=== PATIENT | female | born 1980 | race Hispanic/Latino ===

== ENCOUNTER 2018-01-29 01:31 | Emergency (ER) | payer MEDICAID, OTHER ==
[2018-01-29 01:43] LABS: BASOPHILS % (AUTO) 0.8 % (0.0-5.0); EOSINOPHILS % (AUTO) 1.9 % (0.0-8.0); HEMATOCRIT 42.3 % (36-48); LYMPHOCYTES % (AUTO) 36.9 % (21.0-51.0); MEAN CORPUSCULAR HEMOGLOBIN 33.7 pg (27.0-33.0); MEAN CORPUSCULAR HGB CONC 34.7 g/dL (32.0-36.0); MEAN CORPUSCULAR VOLUME 96.9 fL (79-99); NEUTROPHILS % (AUTO) 53.4 % (40.0-77.0); NUCLEATED RED BLOOD CELLS 0.1 % (0.0-0.19); PLATELET COUNT (AUTO) 259 K/uL (130-400); RED BLOOD CELL COUNT(AUTO) 4.36 MIL/uL (4.00-5.50); RED CELL DISTRIBUTION WIDTH 12.6 % (11.0-15.5); WHITE BLOOD COUNT (AUTO) 6.9 K/uL (4.8-10.8)
[2018-01-29 01:51] LABS: CREATININE 0.9 mg/dL (0.5-1.5); POTASSIUM 3.3 mmol/L (3.5-5.1)
[2018-01-29 01:55] LABS: ALBUMIN 4.1 g/dL (3.5-5.0); BILIRUBIN,TOTAL 0.4 mg/dL (0.2-1.0); TOTAL PROTEIN, SERUM 7.5 g/dL (6.0-8.3)
[2018-01-29] MEDS ORDERED: POTASSIUM BICARB/CIT AC 25 MEQ TABLET.EFF ONE (02:38)
[2018-01-29 02:44] LABS: APPEARANCE,URINE Clear (CLEAR); BILIRUBIN,URINE Negative (NEGATIVE); COLOR,URINE Yellow (YELLOW); GLUCOSE, URINE (UA) Negative (NEGATIVE); KETONES,URINE Negative (NEGATIVE); LEUKOCYTE ESTERASE ,URINE Trace (NEGATIVE); NITRATE,URINE Negative (NEGATIVE); OCCULT BLOOD,URINE Negative (NEGATIVE); PROTEIN,URINE Negative (NEGATIVE); UROBILINOGEN,URINE 0.2 mg/dL (0.2-1.0)
[2018-01-29 02:46] LABS: HCG,QUAL RESULT NEGATIVE (NEGATIVE)
[2018-01-29 03:04] LABS: BACTERIA,URINE Rare /HPF (None Seen); RBC,URINE 0-1 /HPF (0-1); WBC,URINE 0-1 /HPF (0-1)
[2018-01-29] MEDS ORDERED: IOHEXOL-350 75 ML VIAL IV ONE ×2 (04:33)
== END 2018-01-29 07:58 | disposition home or self-care (01) ==
LOC: EDH 01:31
DX: R07.89 Other chest pain (principal); R10.9 Unspecified abdominal pain; R51 Headache
CPT/HCPCS: 36415; 71045; 74177; 80053; 81001; 81025; 82150; 83690; 84484 ×2; 85025; 93005 ×2; 99285; Q9967

== ENCOUNTER 2021-03-05 10:52 | Observation (INO) | payer MEDICAID, OTHER ==
[2021-03-05] VITALS (18 sets, daily range): BP systolic 100–139; BP diastolic 60–73
[~2021-03-05] VITALS: Ht 152.4 cm; Wt 59.0 kg
[2021-03-05 11:15] LABS: APPEARANCE,URINE Clear (CLEAR); BILIRUBIN,URINE Negative (NEGATIVE); COLOR,URINE Yellow (YELLOW); GLUCOSE, URINE (UA) Negative (NEGATIVE); KETONES,URINE Negative (NEGATIVE); LEUKOCYTE ESTERASE ,URINE Trace (NEGATIVE); NITRATE,URINE Negative (NEGATIVE); OCCULT BLOOD,URINE Negative (NEGATIVE); PH,URINE >=9.0 (5.0-8.0); PROTEIN,URINE Negative (NEGATIVE)
[2021-03-05 11:21] LABS: BASOPHILS % (AUTO) 0.3 % (0.0-5.0); EOSINOPHILS % (AUTO) 0.6 % (0.0-8.0); HEMATOCRIT 42.4 % (36-48); LYMPHOCYTES % (AUTO) 12.8 % (21.0-51.0); MEAN CORPUSCULAR HGB CONC 34.7 g/dL (32.0-36.0); MEAN CORPUSCULAR VOLUME 92.4 fL (79-99); MONOCYTES % (AUTO) 7.6 % (3.0-13.0); NEUTROPHILS % (AUTO) 78.3 % (40.0-77.0); PLATELET COUNT (AUTO) 245 K/uL (130-400); RED BLOOD CELL COUNT(AUTO) 4.59 MIL/uL (4.00-5.50); RED CELL DISTRIBUTION WIDTH 11.6 % (11.0-15.5); WHITE BLOOD COUNT (AUTO) 15.7 K/uL (4.8-10.8)
[2021-03-05 11:23] LABS: AMPHET/METH SCREEN,URINE NEGATIVE (NEGATIVE); BARBITURATE SCREEN, URINE NEGATIVE (NEGATIVE); BENZODIAZEPINES SCREEN,URINE NEGATIVE (NEGATIVE); CANNABINOID SCREEN,URINE NEGATIVE (NEGATIVE); COCAINE SCREEN,URINE NEGATIVE (NEGATIVE); OPIATE SCREEN,URINE NEGATIVE (NEGATIVE); PHENCYCLIDINE SCREEN,URINE NEGATIVE (NEGATIVE)
[2021-03-05 11:30] LABS: CREATININE 0.6 mg/dL (0.5-1.5); POTASSIUM 3.7 mmol/L (3.5-5.1)
[2021-03-05 11:39] LABS: BACTERIA,URINE None Seen /HPF (None Seen); RBC,URINE None Seen /HPF (0-1); WBC,URINE 0-1 /HPF (0-1)
[2021-03-05 11:40] LABS: ALBUMIN 4.1 g/dL (3.5-5.0); BILIRUBIN,TOTAL 0.6 mg/dL (0.2-1.0); TOTAL PROTEIN, SERUM 7.5 g/dL (6.0-8.3)
[2021-03-05] MEDS ORDERED: ONDANSETRON 4MG INJ IVP ONE (12:30)
[2021-03-05] MEDS ORDERED: LACTATED RINGERS 1000ML 1,000 ML IV ONE ×2 (12:30→13:39)
[2021-03-05] MEDS ORDERED: MORPHINE 4 MG SYG IVP ONE (12:30)
[2021-03-05] MEDS ORDERED: ONDANSETRON 4MG INJ ONE ×3 (13:39→21:18)
[2021-03-05] MEDS ORDERED: MORPHINE 4 MG SYG ONE (13:50)
[2021-03-05] MEDS ORDERED: ZOSYN 3.375GM+NS 50ML 3.38 GM in 0.9%NACL 50ML 50 ML IV SCH (14:30)
[2021-03-05] MEDS ORDERED: MORPHINE 2 MG SYG IVP PRN (15:00)
[2021-03-05] MEDS ORDERED: ONDANSETRON 4MG INJ IVP PRN (15:00)
[2021-03-05] MEDS ORDERED: 0.9%NACL 50ML 50 ML IV ONE (15:31)
[2021-03-05] MEDS: LACTATED RINGERS 1000ML 1,000 ML IV SCH (15:34)
[2021-03-05] MEDS: ZOSYN 3.375GM +NS 50ML IV SCH ×2 (15:34→23:07)
[2021-03-05] MEDS: KETOROLAC 15MG/ML VIAL (15MG/ML) IV PRN (16:27)
[2021-03-05 18:51] LABS: PROTHROMBIN TIME 10.9 SEC (9.6-11.6)
[2021-03-05 18:52] LABS: PARTIAL THROMBOPLASTIN TIME 31.3 SEC (26.3-35.5)
[2021-03-05] MEDS ORDERED: SUCCINYLCHOLINE CHLORIDE 20 MG/ML 10 ML VIAL ONE (20:53)
[2021-03-05] MEDS ORDERED: LIDOCAINE HCL MPF 1% 5ML VIAL ONE (20:53)
[2021-03-05] MEDS ORDERED: MIDAZOLAM HCL 1 MG/ML 2ML VIAL ONE (20:53)
[2021-03-05] MEDS ORDERED: ROCURONIUM 10MG/1ML SYR 10 MG/ML ML ONE (20:54)
[2021-03-05] MEDS ORDERED: PROPOFOL 10 MG/ML 20ML VIAL IV ONE (20:54)
[2021-03-05] MEDS ORDERED: FENTANYL CITRATE PF 50 MCG/1 ML 2ML VIAL ONE ×2 (20:54→21:21)
[2021-03-05] MEDS ORDERED: BUPIVACAINE/PF 0.5% 30ML VIAL ONE ×2 (21:00→21:20)
[2021-03-05] MEDS ORDERED: DEXAMETHASONE SOD PHOSPHATE 10MG/ML 1ML VIAL ONE (21:17)
[2021-03-05] MEDS ORDERED: GLYCOPYRROLATE 1 MG/5 ML SYRINGE ONE (21:45)
[2021-03-05] MEDS ORDERED: NEOSTIGMINE 5MG/5ML SYR IV ONE (21:45)
[2021-03-05] MEDS ORDERED: MEPERIDINE-PF 25 MG/ML SYG ONE (22:23)
[2021-03-06] VITALS (11 sets, daily range): BP systolic 102–133; BP diastolic 57–78
[2021-03-06] MEDS ORDERED: MORPHINE 4 MG SYG IV PRN
[2021-03-06] MEDS: TRAMADOL HCL 50 MG TABLET PO SCH ×4 (00:16→18:13)
[2021-03-06] MEDS: LACTATED RINGERS 1000ML 1,000 ML IV SCH ×2 (04:20→17:40)
[2021-03-06 04:47] LABS: CREATININE 0.7 mg/dL (0.5-1.5); POTASSIUM 4.4 mmol/L (3.5-5.1)
[2021-03-06 05:53] LABS: BASOPHILS % (AUTO) 0.3 % (0.0-5.0); EOSINOPHILS % (AUTO) 2.2 % (0.0-8.0); HEMATOCRIT 41.7 % (36-48); LYMPHOCYTES % (AUTO) 8.5 % (21.0-51.0); MEAN CORPUSCULAR HEMOGLOBIN 32.7 pg (27.0-33.0); MEAN CORPUSCULAR HGB CONC 34.5 g/dL (32.0-36.0); MEAN CORPUSCULAR VOLUME 94.8 fL (79-99); MONOCYTES % (AUTO) 0.7 % (3.0-13.0); NEUTROPHILS % (AUTO) 87.8 % (40.0-77.0); PLATELET COUNT (AUTO) 245 K/uL (130-400); RED CELL DISTRIBUTION WIDTH 11.9 % (11.0-15.5); WHITE BLOOD COUNT (AUTO) 9.3 K/uL (4.8-10.8)
[2021-03-06] MEDS: ZOSYN 3.375GM +NS 50ML IV SCH ×3 (06:03→22:49)
[2021-03-06] MEDS: KETOROLAC 15MG/ML VIAL (15MG/ML) IV PRN (10:44)
[2021-03-07 04:10] VITALS: BP 98/51
[2021-03-07] MEDS: TRAMADOL HCL 50 MG TABLET PO SCH ×3 (06:00→12:00)
[2021-03-07] MEDS: ZOSYN 3.375GM +NS 50ML IV SCH (06:10)
[2021-03-07] MEDS: LACTATED RINGERS 1000ML 1,000 ML IV SCH (07:00)
[2021-03-07 07:45] VITALS: BP 113/66
[2021-03-07] MEDS ORDERED: LACTULOSE 20 GM/30 ML UDCUP PO SCH (08:00)
[2021-03-07] MEDS ORDERED: TRAM50TA4 PO (08:12)
[2021-03-07] MEDS: KETOROLAC 15MG/ML VIAL (15MG/ML) IV PRN (10:32)
[2021-03-07 12:00] VITALS: BP 109/70
== END 2021-03-07 14:15 | disposition home or self-care (01) ==
LOC: EDH 10:52 → EDHIP 10:53 → 3CH 17:44
PROVIDERS: ADMIT Internal Medicine; ATTEND Internal Medicine
DX: K35.80 Unspecified acute appendicitis (principal); Z20.822 Contact with and (suspected) exposure to COVID-19; D72.829 Elevated white blood cell count, unspecified; R11.2 Nausea with vomiting, unspecified; Z79.899 Other long term (current) drug therapy
CPT/HCPCS: 36415 ×2; 44970; 74176; 80048; 80053; 80305; 81001; 83690; 84702; 85025 ×2; 85610; 85730; 86850; 86900; 86901; 87635; 96361; 96365; 96366 ×5; 96375; 96376 ×2; 99284; A4649 ×3; A4930; A6206; A6207; C1713; C1769 ×3; G0378 ×46; J0330; J1100; J1885 ×4; J2175; J2250; J2270; J2405 ×3; J2543 ×6; J2704; J2710; J3010; J3490 ×4; J7030; J7120 ×3

== ENCOUNTER 2021-08-24 10:14 | Emergency (ER) | payer MEDICAID, OTHER ==
[~2021-08-24] VITALS: Ht 149.9 cm; Wt 57.2 kg
[~2021-08-24 10:14] MED LIST: TRAM50TA4 PO
[2021-08-24 10:46] LABS: BASOPHILS % (AUTO) 0.7 % (0.0-5.0); EOSINOPHILS % (AUTO) 1.4 % (0.0-8.0); HEMATOCRIT 44.5 % (36-48); LYMPHOCYTES % (AUTO) 26.1 % (21.0-51.0); MEAN CORPUSCULAR HEMOGLOBIN 32.4 pg (27.0-33.0); MEAN CORPUSCULAR HGB CONC 33.9 g/dL (32.0-36.0); MEAN CORPUSCULAR VOLUME 95.5 fL (79-99); MONOCYTES % (AUTO) 6.9 % (3.0-13.0); NEUTROPHILS % (AUTO) 64.2 % (40.0-77.0); PLATELET COUNT (AUTO) 256 K/uL (130-400); RED BLOOD CELL COUNT(AUTO) 4.66 MIL/uL (4.00-5.50); RED CELL DISTRIBUTION WIDTH 12.1 % (11.0-15.5); WHITE BLOOD COUNT (AUTO) 7.3 K/uL (4.8-10.8)
[2021-08-24 10:53] LABS: APPEARANCE,URINE Clear (CLEAR); BILIRUBIN,URINE Negative (NEGATIVE); COLOR,URINE Yellow (YELLOW); GLUCOSE, URINE (UA) Negative (NEGATIVE); KETONES,URINE Negative (NEGATIVE); LEUKOCYTE ESTERASE ,URINE Trace (NEGATIVE); NITRATE,URINE Negative (NEGATIVE); OCCULT BLOOD,URINE Negative (NEGATIVE); PROTEIN,URINE Negative (NEGATIVE); UROBILINOGEN,URINE 0.2 mg/dL (0.2-1.0)
[2021-08-24 10:54] LABS: CREATININE 0.5 mg/dL (0.5-1.5); HCG,QUAL RESULT NEGATIVE (NEGATIVE); POTASSIUM 3.8 mmol/L (3.5-5.1)
[2021-08-24 10:59] LABS: ALBUMIN 4.1 g/dL (3.5-5.0); BACTERIA,URINE Rare /HPF (None Seen); BILIRUBIN,TOTAL 0.3 mg/dL (0.2-1.0); RBC,URINE 0-1 /HPF (0-1); SQUAMOUS EPITHELIAL CELL,UR Few /HPF (0-2); TOTAL PROTEIN, SERUM 7.7 g/dL (6.0-8.3); WBC,URINE 0-1 /HPF (0-1)
[2021-08-24] MEDS ORDERED: MORPHINE 4 MG SYG IV SCH (11:30)
[2021-08-24] MEDS ORDERED: 0.9%NACL 1000ML 1,000 ML IV SCH (11:30)
[2021-08-24] MEDS ORDERED: ONDANSETRON 4MG INJ IVP SCH (11:30)
[2021-08-24 13:00] VITALS: BP 132/84
== END 2021-08-24 13:03 | disposition home or self-care (01) ==
LOC: EDH 10:14
DX: R10.31 Right lower quadrant pain (principal); R10.84 Generalized abdominal pain; R11.0 Nausea; Z90.49 Acquired absence of other specified parts of digestive tract
CPT/HCPCS: 36415; 74176; 80053; 81001; 81025; 83690; 85025; 96361; 96374; 96375; 99284; J2270; J2405; J7030